=== PATIENT | female | born 1995 | race Caucasian/White ===

== ENCOUNTER 2021-08-13 18:40 | Emergency (ER) | payer OTHER, SELFPAY ==
--- NOTE | ~2021-08-13 | XR_ITS ---
EXAMINATION: XR shoulder LT min 2V EXAM DATE: 08/13/2021 18:59 INDICATION: Unable to move left shoulder/ arm s/p pulling injury. TECHNIQUE: The following left shoulder projections obtained: frontal projection with internal rotatio n, frontal projection with external rotation, Grashey, and scapular Y view (4+ views). Comparison is made to prior examination from 12/18/2019. FINDINGS: No evidence of left shoulder rotator cuff calcific tendinosis. Unremarkable left glenohu meral and acromioclavicular joints. There are no acute fractures or dislocations identified. There i s no subcutaneous gas. The soft tissue is unremarkable. There are no radiopaque foreign bodies. IMPRESSION: No acute osseous findings. Reviewed, dictated and finalized at location A. IMPRESSION: No acute osseous findings.
[2021-08-13 18:49] VITALS: BP 121/62; PULSE 101; RESP 16; TEMP 36.8; O2SAT 99
--- NOTE | 2021-08-13 18:57 | ED.UPPEXIN ---
HPI - Extremity Injury (Upper) General Chief Complaint: Extremity Injury, Upper Stated Complaint: left arm pain Source: patient Mode of arrival: ambulatory Limitations: no limitations History of Present Illness HPI narrative: Patient is a 25-year-old female who presents complaining of left shoulder pain. Patient reports she was walking down steps with her child when child began jumping on steps. Patient reports feeling a pop in her shoulder. Patient has a history of AC dislocation and shoulder fracture per patient history. Patient reports decreased range of motion to the left shoulder. No numbness or tingling, distal sensation intact, good letter refill. Related Data Home Medications Medication Instructions Recorded Confirmed No Home Medications 08/13/21 08/13/21 Allergies Allergy/AdvReac Type Severity Reaction Status Date / Time No Known Allergies Allergy Unknown Verified 08/13/21 18:45 Review of Systems Review of Systems: CONSTITUTIONAL: Denies fever, chills, or sweats. EYES: Denies visual changes, redness, or discharge. ENT: Denies rhinorrhea, congestion, sore throat, or otalgia. CARDIOVASCULAR: Denies chest pain, palpitations, or edema. RESPIRATORY: Denies cough or dyspnea. GASTROINTESTINAL: Denies abdominal pain, nausea, vomiting, or diarrhea. GENITOURINARY: Denies dysuria or hematuria. SKIN: Denies rash or itching. MUSCULOSKELETAL: Reports left shoulder pain NEUROLOGIC: Denies headache, numbness, dizziness, or weakness. PSYCHIATRIC: Denies anxiety or depression. [facility] Past Medical History Medical History (Updated 08/13/21 @ 19:30 by GIULIANA Loredo) Left shoulder pain Shoulder fracture, left Family History Family History Other Cancer Social History Social History Smoking status: Former smoker Alcohol use details: occasionally Gender identity (if verbalized by the patient): Female Comments At the time of signature, I have reviewed and agree with nursing past medical, surgical, social, and family history unless otherwise noted. Please see nursing chart for further information. There is no relevant family history pertinent to the presenting complaint. Exam Narrative: GENERAL: Well-appearing, well-nourished, and in no acute distress. HEAD: Normocephalic, atraumatic. EYES: EOMI. No redness or drainage. ENT: Mucous membranes pink and moist. CHEST: No respiratory distress. Clear to auscultation. HEART: Regular rate and rhythm. EXTREMITIES: Left shoulder : Decreased range of motion with abduction, adduction, flexion, extension. Tenderness with palpation, distal sensation intact, good capillary refill. SKIN: Warm, dry, no rash. NEURO: No focal deficits. Alert and oriented x3. Gait steady. PSYCH: Normal affect. No signs of depression or anxiety. Course Vital Signs Vital signs: Vital Signs Temperature 36.8 C 08/13/21 18:49 Pulse Rate 101 H 08/13/21 18:49 Respiratory Rate 16 08/13/21 18:49 Blood Pressure 121/62 08/13/21 18:49 Pulse Oximetry 99 08/13/21 18:49 Temperature 36.8 C 08/13/21 18:49 Pulse Rate 101 H 08/13/21 18:49 Respiratory Rate 16 08/13/21 18:49 Blood Pressure 121/62 08/13/21 18:49 Pulse Oximetry 99 08/13/21 18:49 MDM - Extremity Injury (Upper) MDM Narrative Medical decision making narrative: Patient's x-ray shows no acute osseous findings and x-ray unremarkable. Discussed with patient most likely musculoskeletal pain. She should use RICE method. Patient to follow up with Dr. Lopez if symptoms persist. Patient is stable for discharge home outpatient follow-up as discussed. Differential Diagnosis Differential diagnosis: Likely other (Sprain, strain, fracture, contusion) Medical Records Attestation: I reviewed the patient's medical records. Imaging Data Radiologist's impression: ITS Impressions Shoulder
== END 2021-08-13 19:40 | disposition home or self-care (01) ==
PROVIDERS: Emergency Provider Nurse Practitioner
DX: M25.512 Pain in left shoulder (principal); Z87.891 Personal history of nicotine dependence; E23.2 Diabetes insipidus
CPT/HCPCS: 73030; 99213; A4565; G0463

== ENCOUNTER 2022-11-20 17:35 | Emergency (ER) | payer OTHER, SELFPAY ==
[2022-11-20 17:42] VITALS: BP 120/73; PULSE 108; RESP 18; TEMP 37.2; O2SAT 99
--- NOTE | 2022-11-20 17:50 | ED.EYEPROB ---
HPI - Eye Problem General Chief complaint: Eye Problems Stated complaint: Left Eye Irritation Time Seen by Provider: 11/20/22 17:50 Source: patient Mode of arrival: ambulatory Limitations: no limitations History of Present Illness HPI Narrative: 27-year-old female presents with complaint redness, itching, irritation, drainage to bilateral eyes. Symptoms for 2-3 days. Reports that her son recently had bacterial conjunctivitis. States she started his eye drops that he has at home, unknown name, and they are not helping. Denies vision changes. All systems reviewed and negative except as noted above. Related Data Allergies Allergy/AdvReac Type Severity Reaction Status Date / Time No Known Allergies Allergy Unknown Verified 11/20/22 17:42 Review of Systems Review of Systems: CONSTITUTIONAL: Denies fever, chills, or sweats. EYES: Denies visual changes . Reports redness, discharge, itching. ENT: Denies rhinorrhea, congestion, sore throat, or otalgia. CARDIOVASCULAR: Denies chest pain, palpitations, or edema. RESPIRATORY: Denies cough or dyspnea. GASTROINTESTINAL: Denies abdominal pain, nausea, vomiting, or diarrhea. GENITOURINARY: Denies dysuria or hematuria. SKIN: Denies rash or itching. MUSCULOSKELETAL: Denies back pain, joint pain, or myalgia. NEUROLOGIC: Denies headache, numbness, or weakness. PSYCHIATRIC: Denies anxiety or depression. All other systems reviewed are negative, except as documented in HPI. [facility] Past Medical History Medical History (Updated 11/20/22 @ 18:02 by Parisa Schneider NP) Left shoulder pain Shoulder fracture, left Family History Family History Other Cancer Social History Social History Smoking status: Former smoker Alcohol use details: occasionally Gender identity (if verbalized by the patient): Female Comments At time of signature, agree with nursing past medical, surgical, social and family history. There is no relevant family history pertinent to the presenting complaint. Exam Narrative: GENERAL: This is a well-nourished, well-developed patient, in no apparent distress. HEAD: normocephalic, atraumatic. EYES: PERRL. erythema bilateral Sclera ankle joint. roppy drainage bilaterally. EARS: External ears normal NOSE: External nose normal NECK: Neck supple, non-tender without lymphadenopathy, masses or thyromegaly. CARDIOVASCULAR: Regular rate and rhythm without murmurs, gallops, or rubs. RESPIRATORY: Clear to auscultation. Breath sounds equal bilaterally. No wheezes, rales, or rhonchi. SKIN: warm, Dry, intact with no suspicious lesions or rash, good texture and turgor. NEURO: awake, alert, and oriented to person, place and time. There were no obvious focal neurologic abnormalities. EXTREMITIES: No joint tenderness, effusion, or edema noted. Course Course Level of Care: Express Care Visit Vital Signs Vital signs: Vital Signs Temperature 37.2 C 11/20/22 17:42 Pulse Rate 108 H 11/20/22 17:42 Respiratory Rate 18 11/20/22 17:42 Blood Pressure 120/73 11/20/22 17:42 Pulse Oximetry 99 11/20/22 17:42 Oxygen Delivery Room Air 11/20/22 17:42 Temperature 37.2 C 11/20/22 17:42 Pulse Rate 108 H 11/20/22 17:42 Respiratory Rate 18 11/20/22 17:42 Blood Pressure 120/73 11/20/22 17:42 Pulse Oximetry 99 11/20/22 17:42 Oxygen Delivery Room Air 11/20/22 17:42 Reviewed MDM - Eye Problem MDM Narrative Medical decision making narrative: Patient is aware of diagnosis, understands and agrees to treatment plan. Anticipatory guidance given. Patient agrees to follow-up as directed and is aware of reasons to seek care at the emergency department. Portions of this record may have been created with voice recognition software Discharge Plan Discharge Clinical Impression: Acute bacterial conjunctivitis of both
== END 2022-11-20 18:07 | disposition home or self-care (01) ==
PROVIDERS: Emergency Provider Nurse Practitioner Family; PCP Nurse Practitioner Psychiatric/Mental Health
DX: H10.33 Unspecified acute conjunctivitis, bilateral (principal); Z87.891 Personal history of nicotine dependence
CPT/HCPCS: 99213; G0463

== ENCOUNTER 2023-06-23 15:08 | Observation (INO) | payer OTHER, SELFPAY ==
[2023-06-23] VITALS (14 sets, daily range): BP systolic 101–142; BP diastolic 56–83; PULSE 61–95; RESP 15–26; TEMP 36.6–37.2; O2SAT 96–100; BMI 40.0
--- NOTE | ~2023-06-23 | MR_ITS ---
EXAMINATION: MR brain/brain stem wo/w con DATE: 06/24/2023 08:11 INDICATION: Left face and arm paresthesia. TECHNIQUE: Magnetic resonance imaging (MRI) of the brain and brainstem was performed without and with 20 mL MultiHance intravenous contrast. COMPARISON: Brain MRI 02/04/2016, head CT 06/23/2023 FINDINGS: There is no intracranial hemorrhage, acute infarction, or abnormal intracranial mass lesion . The ventricles are normal in size. The paranasal sinuses are clear. The orbits are normal. The mast oid air cells are normal. IMPRESSION: 1. Normal brain. Reviewed, dictated and finalized at location A. IMPRESSION: 1. Normal brain.
--- NOTE | ~2023-06-23 | CT_ITS ---
EXAMINATION: CT brain wo con DATE: 06/23/2023 15:28 INDICATION: left arm weakness, left ear pain . TECHNIQUE: Computed tomography (CT) of the head was performed without intravenous contrast. The mA wa s adjusted according to patient size. Iterative reconstruction technique was employed. The dose-lengt h product was 605.33 mGy-cm. COMPARISON: None. FINDINGS: No acute intracranial hemorrhage or extra-axial fluid collection. No hydrocephalus, mass, or herniation. No acute ischemic infarct. Unremarkable dural venous sinus attenuation. No acute osseous abnormality. The aerated spaces are clear. IMPRESSION: No acute intracranial process. Reviewed, dictated and finalized at location K.
--- NOTE | ~2023-06-23 | CT_ITS ---
EXAMINATION: CTA brain carotid DATE: 06/23/2023 17:59 INDICATION: left arm weakness TECHNIQUE: Computed tomographic angiography (CTA) of the head and neck was performed with 100 mL Omni paque-350 intravenous contrast. Automated exposure control and iterative reconstruction technique wer e employed. The dose-length product was 1084.45 mGy-cm. Maximum intensity projection and volume rend ered 3D-reconstructions were created by the technologist on a separate workstation. COMPARISON: CT brain, same date. FINDINGS: CTA HEAD: No large vessel occlusion, aneurysm, high flow vascular malformation, nidus or extravasation. Symmetr ic parenchymal enhancement. Patent cerebral veins. CTA NECK: Aortic arch and proximal great vessels: Bovine arch. Right common carotid, carotid bifurcation, and internal carotid artery: No plaque.There is 0% stenosi s of the proximal right internal carotid artery relative to normal distal artery lumen diameter (NASC ET criteria). Left common carotid, carotid bifurcation, and internal carotid artery: No plaque.There is 0% stenosis of the proximal left internal carotid artery relative to normal distal artery lumen diameter (NASCET criteria). Vertebral arteries: No significant plaque or stenosis. Left vertebral artery is dominant. Other findings: None. IMPRESSION: No large vessel occlusion. No carotid or vertebral dissection or significant stenosis Reviewed, dictated and finalized at location K.
--- NOTE | ~2023-06-23 | MR_ITS ---
EXAMINATION: MR cervical spine wo/w con DATE: 06/25/2023 08:06 INDICATION: Left upper extremity weakness TECHNIQUE: Magnetic resonance imaging (MRI) of the cervical spine was performed without and with 20 m L Multihance intravenous contrast. Sequences included sagittal T2-weighted FSE, sagittal T2-weighted FS FSE, sagittal T1-weighted FSE, axial T2-weighted FSE, and axial T1-weighted SE. Postcontrast seque nces included sagittal T1-weighted FS FSE, and axial T1-weighted FS SE. COMPARISON: None FINDINGS: Likely positional straightening of the normal cervical lordosis. No spondylolisthesis. Vertebral body heights are normal. Bone marrow signal intensity is normal. Intervertebral disc heights are normal. Cord signal intensity is normal. No abnormally enhancing lesions identified. Visualized cervical sof t tissues are unremarkable. IMPRESSION: 1. Normal cervical spine MRI. Reviewed, dictated and finalized at location A.
--- NOTE | 2023-06-23 15:15 | ECG_ITS ---
Measurements Intervals [place] Rate: 105 P: 58 [place]: 168 QRS: 30 QRSD: 110 T: 30 QT: 319 QTc: 423 Interpretive Statements SINUS TACHYCARDIA OTHERWISE NORMAL ECG NO PREVIOUS ECG AVAILABLE FOR COMPARISON Electronically Signed On 06-28-2023 12:03:22 CDT by Rudi Robbins M.D.
--- NOTE | 2023-06-23 15:19 | ED.GENADULT ---
HPI - General Adult General Chief complaint: Neuro Symptoms/Deficit Stated complaint: Left arm numbness Time Seen by Provider: 06/23/23 15:13 History of Present Illness HPI narrative: 27-year-old female presented to the emergency department for evaluation of numbness and weakness affecting the left arm. Patient states she had a sharp pain behind her left ear at 10 AM this morning and subsequently has had decreased range of motion of the left arm. Patient denies any change in vision facial droop change in speech denies any numbness weakness of the left leg. Related Data Allergies Allergy/AdvReac Type Severity Reaction Status Date / Time No Known Allergies Allergy Verified 11/20/22 18:10 Review of Systems Review of Systems: All systems reviewed & are unremarkable except as noted in HPI and below PMFSH Past Medical History Medical History (Updated 06/23/23 @ 21:14 by Bartolo Hassan MD) Left shoulder pain Shoulder fracture, left Family History Family History Other Cancer Social History Social History Smoking status: Former smoker Alcohol use details: occasionally Gender identity (if verbalized by the patient): Female Exam Narrative: APPEARANCE: Well appearing, no pain, no distress, well-nourished. HEAD: normocephalic, atraumatic. EYES: PERRLA/EOMI, conjunctivae clear. NOSE: Normal no drainage NECK: Supple. No adenopathy, no masses. RESPIRATORY: Airway patent, respirations nonlabored. Clear to auscultation bilaterally, no rales, rhonchi, wheezing. CARDIOVASCULAR: Regular rate and rhythm without murmurs rubs or gallops. ABDOMINAL: Soft, nontender, nondistended, normal bowel sounds MUSCULOSKELETAL: Moves all extremities. Strength/ROM intact, No edema, No calf tenderness. NEURO: Alert. Cranial nerves II through XII intact. weakness and paresthesia of left arm. SKIN: Warm, dry. Normal Color Course Course Emergency Course: 27-year-old female presented ED for evaluation of left arm numbness and weakness. Patient was able to lift her arm upon arrival to the ED but does have some weakness. During her stay in the ED patient did have increased range of motion of the left arm. Patient had no other focal abnormalities. Patient had negative head and neck CT. Case was discussed with neurology and patient will be admitted for MRI and TIA/CVA rule out. Patient was treated with aspirin. Case was discussed with hospitalist and patient was accepted for admission. Vital Signs Vital signs: Vital Signs Temperature 99 F 06/23/23 15:13 Pulse Rate 94 06/23/23 15:13 Respiratory Rate 18 06/23/23 15:13 Blood Pressure 142/83 H 06/23/23 15:13 Pulse Oximetry 100 06/23/23 15:13 Temperature 99 F 06/23/23 15:13 Pulse Rate 85 06/23/23 20:45 Respiratory Rate 17 06/23/23 20:45 Blood Pressure 114/66 06/23/23 20:30 Pulse Oximetry 100 06/23/23 20:45 Medical Decision Making Differential Diagnosis Differential Diagnosis: TIA, CVA, cervical radiculopathy Vital Signs Vital Signs: Vital Signs Temperature 99 F 06/23/23 15:13 Pulse Rate 94 06/23/23 15:13 Respiratory Rate 18 06/23/23 15:13 Blood Pressure 142/83 H 06/23/23 15:13 Pulse Oximetry 100 06/23/23 15:13 Temperature 99 F 06/23/23 15:13 Pulse Rate 85 06/23/23 20:45 Respiratory Rate 17 06/23/23 20:45 Blood Pressure 114/66 06/23/23 20:30 Pulse Oximetry 100 06/23/23 20:45 Lab Data Lab results reviewed: Yes I reviewed the patient's lab results. 06/23/23 16:09 06/23/23 16:09 Labs: Lab Results 06/23/23 06/23/23 Range/Units 15:21 16:09 WBC 10.2 H (4.5-10.0) K/mm3 RBC 4.26 (4.2-5.4) M/mm3 Hgb 11.6 L (12.0-15.0) g/dL Hct 36.7 L (37.0-47.0) % MCV 86.2 (80-100) fl MCH 27.2 (26-34) pg MCHC 31.6 L (32-36) g/dl [place]
[2023-06-23 16:09] LABS: Influenza A QL RT-PCR Negative (Negative); Influenza B QL RT-PCR Negative (Negative); RSV RNA, RT-PCR Negative (Negative); SARS-CoV-2 RNA PCR Negative (Negative)
[2023-06-23 16:17] LABS: Basophils Absolute Auto 0.1 K/mm3 (0.0-0.1); Basophils Percent Auto 0.8 % (0.2-1.2); Eosinophils Absolute Auto 0.1 K/mm3 (0-0.3); Eosinophils Percent Auto 1.3 % (0-4.4); Hematocrit 36.7 % (37.0-47.0); Hemoglobin 11.6 g/dL (12.0-15.0); Immature Granulocyte Absolute 0.04 K/mm3 (0.00-0.031); Immature Granulocyte Percent A 0.4 % (0-0.5); Lymphocytes Absolute Auto 1.91 K/mm3 (0.9-3.2); Lymphocytes Percent Auto 18.7 % (18.3-44.2); Mean Corpuscular HGB Conc 31.6 g/dl (32-36); Mean Corpuscular Hemoglobin 27.2 pg (26-34); Mean Corpuscular Volume 86.2 fl (80-100); Mean Platelet Volume 10.6 fl (7.4-10.4); Monocytes Absolute Auto 0.6 K/mm3 (0.1-0.6); Monocytes Percent Auto 5.6 % (2.6-8.5); Neutrophils Absolute Auto 7.5 K/mm3 (1.3-6.7); Neutrophils Percent Auto 73.2 % (45.5-73.1); Platelet Count Result 297 k/mm3 (150-375); Red Blood Count 4.26 M/mm3 (4.2-5.4); Red Cell Distribution Width 13.6 % (11.5-14.5); White Blood Count 10.2 K/mm3 (4.5-10.0)
[2023-06-23 16:26] LABS: Alanine Aminotransferase 17 U/L (6-35); Albumin Level 4.6 g/dL (3.5-5.1); Alkaline Phosphatase 79 U/L (38-126); Anion Gap 11 mmol/L (8-16); Aspartate Amino Transferase 22 U/L (14-36); Bilirubin,Total 0.3 mg/dL (0.2-1.3); Blood Urea Nitrogen 14 mg/dL (7-17); Calcium 9.5 mg/dL (8.4-10.2); Carbon Dioxide 23 mmol/L (22-30); Chloride 108 mmol/L (98-107); Estimated CRCL calculation 118 ml/min; Estimated Glomerular Filt Rate > 60; Glucose 101 mg/dL (65-110); Potassium 3.5 mmol/L (3.4-5.0); Sodium 142 mmol/L (137-145)
[2023-06-23 16:28] LABS: INR 0.9; Prothrombin Time 12.5 Seconds (11.1-14.7)
[2023-06-23 16:29] LABS: Partial Thromboplastin Time 31.5 SECONDS (22.3-36.8)
--- NOTE | 2023-06-23 19:58 | PM.IMHP ---
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 This progressed to facial tingling and numbness on her L side. These symptoms did not subside. Around pm, a co-worker noticed she was wobbling and after this point she does not remember anything. The co worker sat her down and called her . There were no precipitating events with either cp, sob. The pt does not remember losing consciousness. The found her crying in the chair at her day care. She does remember her coming. This partial loss of consciousness lasted about 20-30 min. Her brought her to the ER because she couldn't take the pain in her ear and face . In the ER, she was noted to have normal vs and a normal EKG. ASA was not given but will be given now. A stat CT head noncon and CTA with con was done, both negative for any stenosis, infarct, dissection, any intracranial abnormality. The neurologist front office supervisor Dr. Terrell was called. She recommended MRI w+wo contrast. When I evaluated her in the ER she was still experiencing weakness in the LUE and LLE, as well as some ataxia. She has a mild L facial droop. She still has paresthesias. Her FH is positive for a mom's oldest sister with lesions in her brain . Review of Systems Review of Systems: Otherwise negative other than HPI [facility] Past Medical History Medical History (Updated 06/23/23 @ 20:16 by Kit Hansen MD) Left shoulder pain Shoulder fracture, left Family History Family History Other Cancer Social History Social History Smoking status: Former smoker Alcohol use details: occasionally Gender identity (if verbalized by the patient): Female Meds Home Medications and Allergies Home Medications Medication Instructions Recorded Confirmed Type ofloxacin 0.3 % eye drops See Rx Instructions EACH EYE 11/20/22 Rx .COMPLEX #10 mL Allergies Allergy/AdvReac Type Severity Reaction Status Date / Time No Known Allergies Allergy Verified 11/20/22 18:10 Vital Signs Vital Signs - 24 hr 06/23/23 15:13 06/23/23 15:20 06/23/23 16:33 Temperature 99 F Pulse Rate 94 87 90 Respiratory Rate 18 19 Blood Pressure 142/83 H 124/76 Pulse Oximetry 100 100 06/23/23 16:33 06/23/23 17:30 06/23/23 18:34 Temperature Pulse Rate 90 94 78 Respiratory Rate 19 20 21 H Blood Pressure 124/76 109/58 L 101/61 Pulse Oximetry 100 98 100 Exam Narrative: Gen: in mild distress HENT: L facial droop. No tongue deviation. Eyes: full EOMI without weakness/deviation Neck: supple, no jvd, full ROM Lungs: CTAB CV: rrr, nl s1/s2 no murmurs Abd: soft nt nd bs+ Ext: 1+ LE edema BL nonpitting Neuro: NIHSS stroke scale of 6 L facial weakness and droop L arm severe weakness 2+, L leg 4+ all other ext nl Was not stood to assess gait H&P: Results Labs Labs: Short CBC 06/23/23 Range/Units 16:09 WBC 10.2 H (4.5-10.0) K/mm3 Hgb 11.6 L (12.0-15.0) g/dL Hct 36.7 L (37.0-47.0) % Plt Count 297 (150-375) k/mm3 BMP 06/23/23 16:09 Sodium 142 Potassium 3.5 Chloride 108 H Carbon Dioxide 23 BUN 14 Creatinine 0.70 Glucose 101 Calcium 9.5 Liver Function 06/23/23 Range/Units 16:09 Total Bilirubin 0.3 (0.2-1.3) mg/dL AST 22 (14-36) U/L ALT 17 (6-35) U/L Alkaline Phosphatase 79 (38-126) U/L Albumin 4.6 (3.5-5.1) g/dL ECG Interpretation: EKG is NSR with no st/t wave abnl or arrhythmias Imaging CT scan
[2023-06-23] MEDS: ASPIRIN 81 MG CHEWABLE TABLET 324 MG PO (20:41)
--- NOTE | 2023-06-23 21:47 | PC.NURSE ---
This patient, Pamela Jara, was admitted to Medical Room 347-01. Patient/family oriented to hospital policies and general routines including ID bracelet, bed and alarms, visiting hours, pain management, procedures, bathroom and other care routines, personal items, smoking policy, room service/diet, and visiting hours. Information on how to activate the Rapid Response Team has been discussed. Patient/Family are encouraged to report perceived risks to care and to ask questions if they do not understand what they are told or what they should do.
[2023-06-24] VITALS (8 sets, daily range): BP systolic 98–105; BP diastolic 43–56; PULSE 63–85; RESP 16–18; TEMP 36.2–37.1; O2SAT 98–99
[2023-06-24 05:36] LABS: Appearance Urine Clear (Clear); Bacteria Urine None Seen /hpf; Bilirubin Urine Negative (Negative); Blood Urine Negative (Negative); Color Urine Yellow (Yellow); Glucose Urine UA Negative (Negative); Ketones Urine Negative (Negative); Leukocyte Esterase Ur Trace LEU/UL (Negative); Nitrate Urine Negative (Negative); Non Pathogenic Casts 0-2; Protein Urine Negative (Negative); RBC Urine 0-2 /hpf (0-2); Specific Grav Ur 1.012 (1.001-1.035); Squamous Epithelial Cell Urine None seen /hpf (Few); Urobilinogen Urine 0.2 mg/dL (<2.0); WBC Urine 0-5 /hpf; pH Urine 5.5 (5.0-9.0)
[2023-06-24 05:40] LABS: Add Urine Microscopic? YES
[2023-06-24] MEDS: ASPIRIN 81 MG CHEWABLE TABLET PO (08:27)
[2023-06-24] MEDS: ATORVASTATIN 40 MG TABLET PO (08:27)
[2023-06-24] MEDS: ENOXAPARIN 40 MG/0.4 ML SYRINGE SUB-Q (08:28)
--- NOTE | 2023-06-24 12:01 | WPDNEURCNPN ---
Assessment and Plan Assessment and plan (1) Arm paresthesia, left: Code(s): R20.2 - Paresthesia of skin Status: Acute (2) Weakness on left side of face: Code(s): R29.810 - Facial weakness Status: Acute (3) Gao palsy: Code(s): G51.0 - Gao's palsy Status: Acute Plan Ms. 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 Facial weakness appears to involve left upper and lower face. MRI brain is normal. Likely Gao's Palsy, although does not explain the weakness in the LUE. Also there appears to be some fluctuation in the facial weakness when patient is asked to smile vs when she smiles spontaneously -- there could be a functional component as well. 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 Patient started experiencing sharp pain behind the left ear on the morning of presentation. This progressed to facial tingling and numbness on the left side of her face and left arm. She also started to experience weakness of the left face and left arm around that time. Because of her symptoms, patient presented to [place] ED where she appeared to have weakness of the left side, including a mild facial droop. She had a CT head and CTA brain/carotid that was negative for any acute changes or abnormalities. MRI brain was done this morning with and without contrast and was read as normal. Patient continues to have left facial and LUE weakness and numbness. She reports that she had a similar episode about 7 years ago when she was stressed from her divorce -- she had right facial weakness and some paraesthesias in the right arm. She was diagnosed with Gao's Palsy and given 2 week course of steroids. 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 There was a recent breakout at the daycare of [id number] disease. Patient did not have any symptoms but her son did. Patient denies any history of herpetic lesions. Review of Systems Constitutional: Constitutional: Denies chills, Denies fever(s) and Denies weight loss Eyes: Eyes: Denies diplopia and Denies loss of vision Comments: left eye dryness ENT: Denies dizziness, Denies hearing loss and Denies tinnitus Comments: pain behind left ear Cardiovascular: Cardiovascular: Denies chest pain, Denies syncope and Denies dyspnea Respiratory: Respiratory: Denies cough, Denies dyspnea and Denies wheezing Gastrointestinal: Gastrointestinal: Denies abdominal pain, Denies change in bowel habits and Denies vomiting Genitourinary: Genitourinary: Denies urinary incontinence Musculoskeletal: Musculoskeletal: Denies arthralgias and Denies joint swelling Integumentary/Breasts: Skin/Breast: Denies new lesions and Denies rash Neurologic: Reports as per HPI, Denies dizziness, Denies syncope and Denies loss of vision Psychiatric: Psychiatric: Reports anxiety and Denies depression Endocrine: Endocrine: Denies cold intolerance and Denies heat intolerance Hematologic/Lymphatic: Hematologic/Lymphatic: Denies easy bleeding and Denies easy bruising Allergic/Immunologic: Allergic/Immunologic: Denies no additional allergic/immunologic complaints and Denies wheezing PMFSH Past Medical History Medical History (Updated 06/24/23 @ 12:12 by Sanam Terrell MD) Left shoulder pain Shoulder fracture, left Fami
--- NOTE | 2023-06-24 15:37 | PM.IMPN ---
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 labs Time Spent With Patient Time with patient: 25 - 35 minutes Subjective Date/time seen: 06/24/23 15:37 Interval history: 06/24: Patient admitted for left upper extremity weakness and left-sided facial weakness possible Gao's palsy. In the past she had right-sided Gao's palsy. For that she was treated with steroids with improvement. Patient noted pain to the left side of the face starting behind the ear around 10:00 a.m. yesterday and progressing down the side of the neck to the left upper extremity. She notes that it is painful in her neck when she raises her arm and thus this restricts her movement as well as feeling weak. Patient reports her left lower extremity was never really affected. Patient underwent stroke workup in the emergency department and upon admission had normal brain MRI. Patient was seen by Neurology today and needs to undergo cervical spine MRI with and without contrast due to left upper extremity weakness and pain. Patient was initially very upset and was going to sign out AMA but decided to stay for the test tomorrow. It could not be done today because she received contrast today. Started prednisone and valacyclovir for presumed Gao's palsy and will await MRI tomorrow. Review of Systems Review of Systems: All systems reviewed & are unremarkable except as noted in HPI and below Constitutional: Comments: no fever or chills Eyes: Comments: dry left eye for a couple weeks, no vesicles or lesions ENT: Comments: Left facial weakness reported along with sensation changes in the lower 2 of 3 trigeminal nerve distribution regions. Cardiovascular: Comments: no chest pain or palpitations Respiratory: Comments: no shortness of breath or cough Gastrointestinal: Comments: no nausea, vomiting or diarrhea Genitourinary: Comments: no dysuria Neurologic: Comments: no significant headache or blurred vision. Left upper extremity weakness and pain in neck when trying to raise arm, no left leg weakness Exam Narrative: GENERAL: Generally well appearing, alert and oriented, in no apparent distress except when raising left arm. She is pleasant and conversant in full sentences. HEENT: Pupils are equally round and briskly reactive to light. Extraocular muscles are intact. Oral mucous membranes are moist without lesions. No vesicles or erythematous base of ear, nose, eye on the left. There is altered sensation in lower 2 of 3 trigeminal nerve paths. No temporal cord or tenderness to palpation over temporal artery. No intraoral abscess. NECK: The patient has no noted JVD. No adenopathy is appreciated. CHEST/LUNGS: Lungs are clear bilaterally without rhonchi, rales, or wheezes. There is no subcutaneous air appreciated. There is no tenderness to the chest wall. HEART: The patient has a regular rate and rhythm. No murmurs, rubs, or gallops are appreciated. Distal pulses are 2+. No carotid bruits appreciated. ABDOMEN: The patient?s abdomen is soft, nontender, and nondistended. Bowel sounds are positive. No organomegaly is appreciated. No masses are appreciated. There are no peritoneal signs. EXTREMITIES: The pat
[2023-06-24] MEDS: valACYclovir HCL 500 MG TABLET 1000 MG PO (18:06)
[2023-06-24] MEDS: predniSONE 20 MG TABLET 60 MG PO (18:06)
[2023-06-25] VITALS: PULSE 63
[2023-06-25 04:00] VITALS: PULSE 77
[2023-06-25 05:28] LABS: Hematocrit 39.9 % (37.0-47.0); Hemoglobin 12.8 g/dL (12.0-15.0); Mean Corpuscular HGB Conc 32.1 g/dl (32-36); Mean Corpuscular Hemoglobin 27.5 pg (26-34); Mean Corpuscular Volume 85.8 fl (80-100); Mean Platelet Volume 10.6 fl (7.4-10.4); Platelet Count Result 321 k/mm3 (150-375); Red Blood Count 4.65 M/mm3 (4.2-5.4); Red Cell Distribution Width 13.3 % (11.5-14.5); White Blood Count 8.5 K/mm3 (4.5-10.0)
[2023-06-25 05:39] LABS: Anion Gap 10 mmol/L (8-16); Blood Urea Nitrogen 10 mg/dL (7-17); Carbon Dioxide 22 mmol/L (22-30); Chloride 109 mmol/L (98-107); Estimated CRCL calculation 136 ml/min; Estimated Glomerular Filt Rate > 60; Glucose 119 mg/dL (65-110); Sodium 141 mmol/L (137-145)
[2023-06-25 05:47] VITALS: BP 126/62; PULSE 98; RESP 18; TEMP 36.4; O2SAT 98
[2023-06-25] MEDS: valACYclovir HCL 500 MG TABLET 1000 MG PO (06:30)
[2023-06-25 08:00] VITALS: PULSE 98
--- NOTE | 2023-06-25 08:31 | PM.DS ---
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 Hospital Course: Patient underwent CTA of the head neck which was negative for significant narrowing or obvious blockage. MRI of the brain with contrast was obtained which showed no evidence of stroke. Patient was evaluated Neurology who ordered MRI the cervical spine with and without contrast the which had to be this morning due to patient already receiving contrast yesterday. MRI of the cervical spine was unremarkable except for some straightening the cervical curve possibly muscle spasm versus variant. Patient reported feeling much better today with better range of motion in the left upper extremity. She has a sling that she states she will only wear when she is walking around when she is at rest she will remove this. She was educated to continue working range of motion in the shoulder to frozen shoulder. Patient discharged with prescription for prednisone valacyclovir for Gao's palsy and low-dose tizanidine for muscle relaxer. Time spent discussing smoking cessation with patient: 3 to 10 minutes Status at Discharge Cognitive/behavioral status at discharge: Awake, alert, oriented and pleasant Functional status at discharge: independent ambulation Overall status at discharge: patient is progressing back to baseline Time Spent with Patient Time attestation: Total time spent providing and/or coordinating discharge services: Time spent: Less than 30 minutes Exam Narrative: GENERAL: Generally well appearing, alert and oriented, in no apparent distress except when raising left arm. She is pleasant and conversant in full sentences. HEENT: Pupils are equally round and briskly reactive to light. Extraocular muscles are intact. Oral mucous membranes are moist without lesions. No vesicles or erythematous base of ear, nose, eye on the left. There is altered sensation in lower 2 of 3 trigeminal nerve paths. No temporal cord or tenderness to palpation over temporal artery. No intraoral abscess. NECK: The patient has no noted JVD. No adenopathy is appreciated. CHEST/LUNGS: Lungs are clear bilaterally without rhonchi, rales, or wheezes. There is no subcutaneous air appreciated. There is no tenderness to the chest wall. HEART: The patient has a regular rate and rhythm. No murmurs, rubs, or gallops are appreciated. Distal pulses are 2+. No carotid bruits appreciated. ABDOMEN: The patient?s abdomen is soft, nontender, and nondistended. Bowel sounds are positive. No organomegaly is appreciated. No masses are appreciated. There are no peritoneal signs. EXTREMITIES: The patient has no peripheral edema. There is no focal long bone tenderness or deformity. SKIN: The patient?s skin is warm and dry, without rashes or lesions. PSYCHIATRIC: The patient has normal mental status and has an appropriate affect. NEUROLOGIC: See HEENT above plus Patient has 5/5 strength in both lower extremities and right upper extremity with 4+/5 in left upper extremity to passive or active shoulder abduction or flexion/extension. DS: Data Data Completed and Pending Completed studies during hospitalization: CT Brain, CTA Head/neck, MRI Brain, MRI C-spine Pending studies at discharge: None Labs on day of discharge: Labs from
[2023-06-25] MEDS: ATORVASTATIN 40 MG TABLET PO (08:37)
[2023-06-25] MEDS: ASPIRIN 81 MG CHEWABLE TABLET PO (08:38)
[2023-06-25] MEDS: predniSONE 20 MG TABLET 60 MG PO (08:39)
== END 2023-06-25 09:37 | disposition home or self-care (01) ==
LOC: ANHED 16:28 → ANH3MED 21:09
PROVIDERS: Nurse Practitioner; Admitting Provider Internal Medicine; Emergency Provider Emergency Medicine; Visit Provider Hospitalist
DX: G51.0 Bell's palsy (principal); R20.2 Paresthesia of skin; N25.1 Nephrogenic diabetes insipidus; H92.02 Otalgia, left ear; Z20.822 Contact with and (suspected) exposure to COVID-19; R00.0 Tachycardia, unspecified; F17.290 Nicotine dependence, other tobacco product, uncomplicated; F10.90 Alcohol use, unspecified, uncomplicated
CPT/HCPCS: 36415; 70450; 70496; 70498; 70553; 72156; 80048; 80053; 81001; 85025; 85027; 85610; 85730; 87637; 93005; 96372; 99285; A4565; A9270; A9577; G0378; G0379; J1650; J7512; Q9967

== ENCOUNTER 2024-04-07 15:44 | Emergency (ER) | payer OTHER, SELFPAY ==
--- NOTE | ~2024-04-07 | XR_ITS ---
EXAM: XR knee RT min 4V DATE: 04/07/2024 16:03 HISTORY: fall, medial and anterior pain . COMPARISON: None available. FINDINGS: Normal mineralization. No fracture or dislocation. No lytic or blastic lesion. Mild tricom partmental right knee osteoarthritis. Small right knee joint effusion. No erosion or periosteal king e. Soft tissues within normal limits. IMPRESSION: No acute osseous finding in the right knee. Reviewed, dictated and finalized at location K.
[2024-04-07 15:46] VITALS: BP 120/77; PULSE 100; RESP 20; TEMP 36.4; O2SAT 99
--- NOTE | 2024-04-07 17:10 | ED.LOWEXIN ---
HPI - Extremity Injury (Lower) General Chief Complaint: Extremity Injury, Lower Stated Complaint: right knee pain Time Seen by Provider: 04/07/24 16:15 Source: patient Mode of arrival: wheelchair Limitations: no limitations History of Present Illness HPI Narrative: This is a 28 year old female that presents to the ER for right knee injury sustained today. Reports she was walking and felt a pop. Has had pain and difficulty ambulating since. Denies fever, erythema decreased ROM or numbness. Related Data Allergies Allergy/AdvReac Type Severity Reaction Status Date / Time No Known Allergies Allergy Verified 04/07/24 15:49 Review of Systems Review of Systems: CONSTITUTIONAL: Denies fever MUSCULOSKELETAL: Reports joint pain, and myalgia. NEUROLOGIC: Denies numbness All systems reviewed & are unremarkable except as noted in HPI and below PMFSH Past Medical History Medical History (Updated 04/07/24 @ 17:12 by Sabrina Vieira PA-C) AC joint dislocation Left shoulder pain Shoulder fracture, left Family History Family History Other Cancer Social History Social History Years smoked: 3 Smoking status: Current every day smoker Tobacco type: e-cigarettes/vaping Alcohol intake: never Alcohol use details: occasionally Substance use: never Lack of Transportation: No Lack of Food: Never True Current Housing: I Have Housing Concerned About Future Housing: No Difficulty Paying Gas/Electric Bills: No Difficulty Paying for Meds: No Currently Unemployed: No Education: Decline to Answer Difficulty w/ Childcare or Family Care: No Gender identity (if verbalized by the patient): Female Spiritual care concerns: No Exam Narrative: GENERAL: Well-appearing, well-nourished, and in no acute distress. HEAD: Normocephalic, atraumatic. EYES: EOMI. EXTREMITIES: Normal range of motion. No edema or obvious deformity. Normal DP pulse. Normal sensation SKIN: Warm, dry, no rash. NEURO: No focal deficits. Alert and oriented x3. PSYCH: Normal mood and affect Course Course Emergency Course: patient updated on workup and agrees with plan of care Vital Signs Vital signs: Vital Signs Temperature 97.5 F L 04/07/24 15:46 Pulse Rate 100 04/07/24 15:46 Respiratory Rate 20 04/07/24 15:46 Blood Pressure 120/77 04/07/24 15:46 Pulse Oximetry 99 04/07/24 15:46 Oxygen Delivery Room Air 04/07/24 15:46 Temperature 97.5 F L 04/07/24 15:46 Pulse Rate 100 04/07/24 15:46 Respiratory Rate 20 04/07/24 15:46 Blood Pressure 120/77 04/07/24 15:46 Pulse Oximetry 99 04/07/24 15:46 Oxygen Delivery Room Air 04/07/24 15:46 Procedures Orthopedic Splinting/Casting Injury #1: Splinting/Casting Date: 04/07/24 Splinting/Casting Time: 17:14 Side: right Lower Extremity Injury Location: knee Lower Extremity Immobilizer: Ag wrap Pre-Procedure Neuro Vascular Exam: normal Post-Procedure Neuro Vascular Exam: normal Other Orthopedic Equipment: crutches MDM - Extremity Injury (Lower) MDM Narrative Medical decision making narrative: Patient presents to the emergency department after a right knee injury today. Reports hearing a pop while she was walking. Has had swelling and pain since. Is not able to ambulate. She is afebrile and nontoxic appearing. She is neurovascularly intact. Right knee x-rays without acute osseous findings. Does show a small knee joint effusion and osteoarthritis. Patient updated on her workup and agrees with plan of care. She is to follow up with Orthopedics. She was placed in Ag wrap and given crutches. She was given warnings to return to the ER Differential Diagnosis Differential diagnosis: Likely acute internal derangement of knee and other ( osteoarthritis) Imaging Data Radiologist's i
== END 2024-04-07 17:27 | disposition home or self-care (01) ==
PROVIDERS: Emergency Provider Physician Assistant
DX: M23.91 Unspecified internal derangement of right knee (principal); F17.290 Nicotine dependence, other tobacco product, uncomplicated
CPT/HCPCS: 73564; 99283

== ENCOUNTER 2025-04-25 20:22 | Emergency (ER) | payer OTHER, SELFPAY ==
--- NOTE | ~2025-04-25 | XR_ITS ---
HISTORY: injury, pain COMPARISON: None TECHNIQUE: 3 views of the right hand were performed. FINDINGS: No acute fracture is identified. Gullwing deformity is identified within the proximal interphalangeal joint spaces of the second, thir d, fourth and fifth digits. The remaining joint spaces are preserved. The carpal arcs are intact. Mild radiocarpal joint space narrowing with sclerosis of the distal radius is present. Bone mineralization is age-appropriate No significant soft tissue swelling. No radiopaque foreign body is identified. IMPRESSION: No acute fracture or dislocation within the right hand, as detailed above. Reviewed, dictated and finalized at location A.
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
--- OUTSIDE RECORDS SUMMARY | 2025-04-25 20:23 | XMS_ITS | Referral Summary ---
Author Organization [facility] [place] [address] [place] [address] Care Team Providers Care Rubbing Bed Operator Name Role Phone Noel Zarate MD Unavailable [phone] Nayeli Haynes Primary Care Provider + Encounters Date Type Department Care Team Description 02/23/2025 9:30 AM CDT Office Visit [facility] Family Medicine [address] [phone] Nayeli Haynes PA Dyslipidemia (Primary Dx); Attention deficit disorder (ADD) without hyperactivity; High risk medication use; Class 2 severe obesity due to excess calories with serious comorbidity and body mass index (BMI) of 38.0 to 38.9 in adult (HCC) from Last 3 Months Allergies No known active allergies Medications lisdexamfetamine [...] (08/17/2022): Added automatically from request for surgery [id number] Diabetes insipidus 09/17/2021 Assessment & Plan (07/19/2024 [...] 09/17/2021 07/19/2024 Gestational hypertension, antepartum 09/17/2021 03/08/2022 Immunizations Immunization Administration Dates Next Due DTaP 07/09/1999, 6,04/17/1995,01/16/1995,0 1994 HPV, Unspecified 06/29/2009 Hep A, Pediatric 11/17/2003,05/12/2003 Hep B Vaccine 08/13/1995,1994,1994 HiB 04/15/1996,04/17/1995,01/16/1995 ,1994 Influenza, Unspecified 08/08/2024(Deferr ed: Patient decision),07/09/2024(Deferred: Patient decision),08/25/2023(Deferred: Patient decision),09/17/2021(Deferred: Patient decision) MMR 07/09/1999,12/11/1995 Meningococcal MCV4P (Menactra) 06/29/2009 PPD TEST 01/05/2023 Polio, Unspecified 07/09/1999,04/17/1995, 995,1994 Rho (D) Immune Globulin 10/22/2014 Tdap 10/22/2014,06/29/2009 Social History Tobacco Use Types Packs/Day Years [...] on file 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 Gender Identity Not on file Sexual Orientation Not on file Last Filed Vital Signs Vital Sign Reading [...] 02/23/2025 9:19 AM CDT Plan of Treatment Not on file Procedures Procedure Name Priority Date/Time Associated Diagnosis Comments HM PAP SMEAR Routine 09/05/2020 from Last 3 Months or Most Recently Relevant to Health Maintenance Results * PAP SMEAR (09/05/2020) SCRIBED Pap test normal us Historical Provider MD HEALTH MAINTENANCE Final Result from Last 3 Months or Most Recently Relevant to Health Maintenance Insurance [facility] [address] [place] [address] [facility] Care Teams Rubbing Bed Operator Relationship Specialty Start Date End Date Nayeli Haynes PA [address] [facility] [address] [place] [address] PCP - General Family Medicine 07/19/24 Noel Zarate MD Referring Physician Obstetrics and Gynecology 09/17/21
--- OUTSIDE RECORDS SUMMARY | 2025-04-25 20:23 | XMS_ITS | Clinical Summary ---
Author Organization 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 Gender Identity Not on file Sexual Orientation Not on file Plan of Treatment Health Maintenance Due Date Last Done Comments Hepatitis C Virus (HCV) Screening 1994 TdaP Immunization 1994 Hepatitis B Immunization (1 of 3 - 19+ 3-dose series) 2013 Pap Smear 2015 Influenza Immunization (#1) 2024 SARS-COV-2 Immunization ( season) 2024 Cervical Cancer Screening (CCS) 2024 HPV/Cotest 2024 Respiratory Syncytial Virus (RSV) Immunization (Adult) (1 - 1-dose 75+ series) 2069 Meningococcal Immunization (ACWY) Aged Out No longer eligible based on patient's age to complete this topic Pneumococcal Immunization Combined Aged Out No longer eligible based on patient's age to complete this topic Rotavirus Immunization Aged Out No lo nger eligible based on patient's age to complete this topic
[2025-04-25 20:28] VITALS: BP 124/79; PULSE 123; RESP 16; TEMP 36.4; O2SAT 100
--- OUTSIDE RECORDS SUMMARY | 2025-04-25 22:47 | XMS_ITS | Clinical Summary ---
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
--- OUTSIDE RECORDS SUMMARY | 2025-04-25 22:47 | XMS_ITS | Referral Summary ---
Author Organization [facility] [place] [address] [place] [address] Care Team Providers Care Director Advertising Name Role Phone Noel Zarate MD Unavailable [phone] Nayeli Haynes Primary Care Provider + Encounters Date Type Department Care Team Description 02/23/2025 9:30 AM CDT Office Visit 

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
[2025-04-25 22:49] VITALS: PULSE 96; RESP 16; O2SAT 100
[2025-04-25] MEDS: ACETAMINOPHEN 500 MG TABLET 1000 MG PO (23:06)
[2025-04-25 23:23] VITALS: BP 118/75; PULSE 99; RESP 16; TEMP 36.9; O2SAT 100
== END 2025-04-25 23:14 | disposition home or self-care (01) ==
PROVIDERS: Emergency Provider Physician Assistant
DX: S60.041A Contusion of right ring finger without damage to nail, initial encounter (principal); W22.8XXA Striking against or struck by other objects, initial encounter; F17.290 Nicotine dependence, other tobacco product, uncomplicated
CPT/HCPCS: 29130; 73130; 99283; A9270